=== PATIENT | female | born 1960 | race Caucasian/White ===

== ENCOUNTER 2016-06-22 10:06 | Outpatient (CLI) | payer BC ==
[2016-06-22 11:51] LABS: ALT (SGPT) 36 U/L (8-55); AST (SGOT) 34 U/L (5-34); Albumin 3.9 g/dL (3.5-5.0); Alkaline Phosphatase 151 U/L (40-150); Anion Gap 14 mmol/L (10-20); BUN (Urea Nitrogen) 18 mg/dL (9.8-20.1); Bilirubin, Total 0.6 mg/dL (0.2-1.2); Calc. Creatinine Clearance 0 mL/min (70-130); Calcium 8.8 mg/dL (7.8-10.44); Carbon Dioxide 24 mmol/L (22-29); Chloride 107 mmol/L (98-107); Estimated GFR-MDRD 72; Glucose 93 mg/dL (70-105); Potassium 3.3 mmol/L (3.5-5.1); Protein, Total 6.9 g/dL (6.0-8.3); Sodium 142 mmol/L (136-145)
[2016-06-22 12:17] LABS: #Basophils 0.1 thou/uL (0.0-0.2); #Eosinphils 0.2 thou/uL (0.0-0.7); #Lymphocytes 2.5 thou/uL (1.20-3.40); #Monocytes 0.4 thou/uL (0.11-0.59); #Neutrophils 4.4 thou/uL (1.40-6.50); %Basophils 1.2 % (0.0-1.0); %Eosinophils 3.2 % (0.0-10.0); %Monocytes 5.7 % (0.0-10.0); %Neutrophils 57.9 % (42.0-75.0); Hemoglobin 13.3 g/dL (12.0-16.0); Mean Corpuscular HGB CONC 32.6 g/dL (32.0-36.0); Mean Corpuscular Hemoglobin 31.2 pg (27.0-31.0); Mean Corpuscular Volume 95.6 fl (81.0-99.0); Mean Platelet Volume 5.8 fL (7.4-10.4); Platelet Count 248 thou/uL (130-400); RBC Distribution Width 14.3 % (11.5-14.5); Red Blood Cell (RBC) Count 4.25 mill/uL (4.20-5.40); White Blood Cell (WBC) Count 7.6 thou/uL (4.8-10.8)
== END 2016-06-22 10:07 | disposition home or self-care (01) ==
LOC: HPCALD 10:06
PROVIDERS: ATTEND Family Medicine
DX: E03.9 Hypothyroidism, unspecified (principal); F32.0 Major depressive disorder, single episode, mild
CPT/HCPCS: 36415; 80053; 84443; 85025

== ENCOUNTER 2017-09-03 12:53 | Outpatient (CLI) | payer OTHER ==
--- NOTE | 2017-09-03 16:22 | RAD ---
THORACIC SPINE THREE VIEWS 09/03/17 Comparison is made with a 04/23/16 study. An epidural stimulator has been placed. The tip of the stimu lator is at about the T8 level. 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 IMPRESSION: Stimulator lead at approximately T8. POS: HOME
== END 2017-09-03 12:54 | disposition home or self-care (01) ==
LOC: BURRAD 12:53
PROVIDERS: ATTEND Anesthesiology Pain Medicine
DX: M96.1 Postlaminectomy syndrome, not elsewhere classified (principal); S32.001S Stable burst fracture of unspecified lumbar vertebra, sequela
CPT/HCPCS: 72072